=== PATIENT | male | born 1955 | race Caucasian/White ===

== ENCOUNTER 2016-06-10 02:35 | Inpatient (IN) | payer OTHER ==
--- NOTE | ~2016-06-10 | CR72 ---
[facility] A Service of [facility] & [facility] / [facility] RADIOLOGY TEXT RESULTS PATIENT: KETURAH FREDERICK LOCATION: [facility] : 53 UNIT #: [id number] AGE: [address]: Darryn Flores MD SEX: M ORDER DR: [id number] [facility] [address]. [place], [place] [address] [id number] MR#: [id number] #: [id number] NAME: KETURAH FREDERICK : 1955 SEX: M STUDY DATE/TIME: 06/10/2016 1:42 [facility] RO[facility]: [id number] STUDY DESCRIPTION: CR Chest Single View Portable Attending Physician: Darryn Flores M.D. Ordering Physician: Onel Dan M.D. Primary Care Physician: Avinash Beebe M.D. MEDICAL IMAGING REPORT This report is preliminary unless electronic signature is present EXAM Portable AP view of the chest COMPARISON May 25, 2016, March 18, 2015 and March 03, 2016. INDICTIONS 61-year-old male with dyspnea for 3 days. FINDINGS Cardiomediastinal silhouette is within normal limits. No pneumothorax or pleural effusion. Stable diffuse prominence of the pulmonary interstitium, nonspecific finding. IMPRESSION Stable diffuse prominence of the pulmonary interstitium, nonspecific finding. No acute radiographic abnormality. Dictated by... Rigoberto Riley M.D. THIS IS AN ELECTRONICALLY VERIFIED REPORT Rigoberto Riley M.D. at 06/10/2016 6:47 PM Amy TD: 06/10/2016 08:06 JOB #: [id number] MEDICAL IMAGING REPORT COPY
--- NOTE | ~2016-06-10 | DS ---
Unit #: [id number] #: [id number] Patient: KETURAH FREDERICK [id number] [address] [place], [place] [address] [id number] MR#: [id number] NAME: KETURAH FREDERICK ROOM: 574 Age: 61 Sex: M Admission Date: 06/10/2016 : 1955 Discharge Date: 06/16/2016 Attending Physician: Darryn Flores M.D. Primary Care Physician: Avinash Beebe M.D. DISCHARGE SUMMARY DISCHARGE DIAGNOSES 1. Acute and chronic hypoxemic/hypercarbic respiratory failure. 2. Chronic obstructive pulmonary disease exacerbation. 3. Diabetes mellitus. 4. Hypertension. 5. Hyperlipidemia. DISCHARGE MEDICATIONS 1. Simvastatin 40 mg p.o. daily. 2. Lisinopril 20 mg p.o. daily. 3. Janumet 50/500, one tablet twice daily. 4. Lantus 20 units subcu twice daily. 5. Albuterol inhaler, two puffs every four hours as needed. 6. Spiriva 18 mcg, one inhalation daily. 7. Symbicort 160/4.5, two puffs b.i.d. 8. O2 at 3 L. 9. Prednisone 40 mg for four days, decrease by 10 mg every four days until off. 10. Doxycycline 100 mg b.i.d. x3 days. FOLLOWUP Follow up in my office in one week. HOSPITAL COURSE 61-year-old white male recently discharged from the hospital, admitted with increased shortness of breath, cough and congestion. Chest x-ray showed no acute infiltrate. He was more dyspneic and tachypneic in the emergency room. He was treated with inhaled bronchodilators and steroids. He was admitted, treated with inhaled bronchodilators, IV Solu-Medrol, covered with oral antibiotics. O2 was administered. He was placed on DVT prophylaxis. He was placed on sliding scale insulin. His home medicines were all continued except for metformin, component of Janumet. He had markedly purulent sputum. He has been slowly weaned off his steroids and is going to be discharged home on Thursday but had an exacerbation at that time with more wheezing and dyspnea and his steroids were increased. Yesterday they were decreased back to 20 mg q.8 and he has improved. He does have some light green sputum production but is wheeze free. He will be discharged home on the above mentioned medications, to follow up in the office in one week to ensure he is doing well. He would likely be a candidate for Dalires to see if this improved the sputum production and his breathing somewhat and prevent further admissions. He is to monitor his blood sugars and report to his primary care physician, Dr. Garay, if they are persistently elevated. Unit #: [id number] #: [id number] Patient: KETURAH FREDERICK Dictated by... Chuck Macario/jimena TD: 06/18/2016 06:41 JOB #: [id number] DISCHARGE SUMMARY X Rc Garrett MD X DISCHARGE SUMMARY
--- NOTE | ~2016-06-10 | EKG ---
PATIENT: KETURAH FREDERICK UNIT #: [id number] Ventricular Rate: 97 BPM Atrial Rate: 97 BPM P-R Interval: 142 ms QRS Duration: 74 ms Q-T Interval: 328 ms QTC Calculation(Bezet): 416 ms P Elsie: 69 degrees Calculated R Elsie: -18 degrees Calculated T Elsie: 23 degrees Diagnosis Line: Normal sinus rhythm Diagnosis Line: Normal ECG Diagnosis Line: When compared with ECG of 25-MAY-2016 23:19, Diagnosis Line: No significant change was found Diagnosis Line: Confirmed by ANAIS STEVENSON MD ([id number]) on Diagnosis Line: 06/10/2016 12:01:16 PM INTERPRETING : DAYO
--- NOTE | ~2016-06-10 | HP ---
Unit #: [id number] #: [id number] Patient: KETURAH CHAVEZ [id number] [address] [place], [place] [address] [id number] MR#: [id number] NAME: KETURAH CHAVEZ ROOM: 574 Age: 61 Sex: M Admission Date: 06/10/2016 : 1955 Attending Physician: Darryn Flores M.D. Primary Care Physician: Avinash Beebe M.D. HISTORY AND PHYSICAL HISTORY OF PRESENT ILLNESS Mr. Chavez is a 61-year-old white male with a history of chronic obstructive pulmonary disease and chronic respiratory failure. He was recently discharged from the hospital on 05/29/2016 after being admitted for exacerbation of chronic obstructive pulmonary disease and acute on chronic hypoxemic hypercarbic respiratory failure. He was discharged on albuterol, Symbicort, Spiriva, Janumet, tapering dose of prednisone, Simvastatin, lisinopril, Lantus, Levaquin and O2 at 2 liters. He did okay. He was to follow up in two weeks, but he is home with daughter who caught a cold and he caught her cold. He has cough and greenish sputum. No definite documented fevers. No chest pain. No hemoptysis. He has had wheezing and increased shortness of breath. He was still on his prednisone taper, but had finished his Levaquin. He presented to the emergency room. His chest x-ray showed no acute infiltrate, mass or congestion. Chemistry revealed a creatinine of 1.0, glucose 209, sodium 130, white blood cell count 6,500, hematocrit 42.1, platelets normal. We were called to admit the patient. PAST MEDICAL HISTORY 1. Chronic obstructive pulmonary disease. 2. Chronic respiratory failure, hypoxemic hypercarbic. 3. Diabetes. 4. Hyperlipidemia. 5. Hypertension. PAST SURGICAL HISTORY None. SOCIAL HISTORY Stopped smoking for the last eight days. Smoked the first five days he returned home from the hospital. Had smoked a pack of cigarettes or less per day since he was a teenager. No alcohol or illicit drugs. FAMILY HISTORY Coronary artery disease, chronic obstructive pulmonary disease. ALLERGIES No known drug allergies. HOME MEDICATIONS 1. Ventolin. 2. Spiriva. 3. Symbicort. 4. Simvastatin. Unit #: [id number] #: [id number] Patient: KETURAH CHAVEZ 5. Lisinopril. 6. Janumet. 7. Lantus. REVIEW OF SYSTEMS Ten point systems otherwise negative. PHYSICAL EXAMINATION GENERAL: White male, currently in no distress. VITALS: Blood pressure 128/64, pulse 112, respiratory rate 20, temperature 97.9. HEENT: Normocephalic, atraumatic. Pupils equal, round and reactive. Sclerae nonicteric. Nasal passages patent. Posterior pharynx crowded. Poor dentition. NECK: Supple. Trachea midline. No cervical or supraclavicular lymphadenopathy. LUNGS: With no expiratory wheezes bilaterally. HEART: Heart sounds distant. Regular rate and rhythm. Could not appreciated murmur, rub or gallop. ABDOMEN: Nontender. Bowel sounds present. No hepatosplenomegaly. EXTREMITIES: Without clubbing, cyanosis or edema. NEUROLOGIC: Awake and oriented times three. Cranial nerves grossly intact. Muscle strength symmetric bilaterally. Affect calm. SKIN: Warm and dry. DIAGNOSTIC STUDIES IMAGING: Chest x-ray personally reviewed. No acute infiltrate, mass or congestion. LABORATORY: As noted. ASSESSMENT 1. Acute exacerbation of chronic obstructive pulmonary disease. 2. Acute on chronic hypoxemic hypercarbic respiratory failure. 3. Diabetes mellitus. 4. Hyperlipidemia. 5. Tobacco abuse. 6. High blood pressure. PLAN Inhaled bronchodilators, IV Solu-Medrol, cover with oral antibiotics. DVT prophylaxis. Nicotine patch. Discussed smoking cessation for 10 minutes. Also placed on sliding scale insulin for hyperglycemia secondary to steroids. Dictated by Chuck Macario TD: 06/11/2016 14:53 JOB #: [id number] Unit #: [id number] #: [id number] Patient: KETURAH CHAVEZ HISTORY AND PHYSICAL X Rc Garrett MD HISTORY AND PHYSICAL
[~2016-06-10 02:35] MED LIST: ACETAMINOPHEN PO; ACTOS30 MG PO; ALBUTEROL17 GM INH; AUGMENTIN PO; COMBIVENT U/D3 M2 INH; DUONEB 2.5-0.5 M3 ML NEB; GLIPIZIDE10 MG PO; GLUCOTROL PO; JANUMET 50-501 UDTAB PO; LANTUS SOLOSTAR3 ML SQ; LANTUS SOLOSTAR3 ML SUBQ; LANTUS100 U/ML SUBQ; LEVAQUIN PO; LEVAQUIN750 MG PO; LISINOPRIL20 MG PO; OXYGEN; PIOGLITAZONE30 MG PO; PREDNISONE PO; PREDNISONE10 MG PO; PROAIR HFA; SIMVASTATIN20 MG PO; SIMVASTATIN40 MG PO; SPIRIVA RESPIMAT4 G1 INH; SPIRIVA18 MCG INH; SYMBICORT INH; VIBRAMYCIN100 M1 PO; ZESTRIL40 MG PO; ZITHROMAX PO; ZOCOR20 MG PO
[2016-06-10 02:47] LABS: BASOPHIL% 0.2 % (0-2.5); HEMATOCRIT 42.1 % (38.0-50.0); HEMOGLOBIN 14.1 gm/dL (13.0-16.0); LYMPHOCYTE# 0.3 X10e3 (1.0-3.5); LYMPHOCYTE% 5.3 % (17.0-45.0); MEAN CORPUSCULAR HEMOGLOBIN 31.3 PG (28-34); MEAN CORPUSCULAR HGB CONC 33.4 g/dL (30-36); MEAN PLATELET VOLUME 8.2 FL (6.5-11.5); MONOCYTE# 0.2 X10e3 (0-1.0); MONOCYTE% 3.6 % (3.0-12.0); NEUTROPHIL# 5.9 X10e3 (1.5-7.1); NEUTROPHIL% 90.9 % (40-75); PLATELET COUNT 161 X10e3 (140-420); RED BLOOD COUNT 4.48 X10e (3.90-5.60); RED CELL DISTRIBUTION WIDTH 13.7 % (11.0-15.5); WHITE BLOOD COUNT 6.5 X10e3 (4.0-10.5)
[2016-06-10 02:51] LABS: DIFF IND NO
[2016-06-10 03:22] LABS: ALBUMIN SERUM 3.7 g/dL (3.5-5.0); ALKALINE PHOSPHATASE 49 U/L (32-92); ALT (SGPT) 20 U/L (10-40); AST (SGOT) 18 U/L (10-42); BILIRUBIN, DIRECT 0.1 mg/dL (0.0-0.2); BILIRUBIN,INDIRECT 0.7 mg/dL (0.0-0.9); BILIRUBIN,TOTAL 0.8 mg/dL (0.2-2.0); BLOOD UREA NITROGEN 19 mg/dL (9-23); CALCIUM SERUM 9.2 mg/dL (8.4-10.2); CARBON DIOXIDE 30 mmol/L (22-31); CHLORIDE 94 mmol/L (100-111); GLOM FILT RATE Estimated ABOVE60 mL/min (>60); GLUCOSE FASTING 209 mg/dL (70-110); POTASSIUM 4.8 mmol/L (3.5-5.1); PROTEIN TOTAL SERUM 7.4 g/dL (6.0-8.3); SODIUM 134 mmol/L (135-145)
[2016-06-10 03:27] LABS: POC - CKMB 3.1 ng/mL (0.0-7.9); POC - TROPONIN <0.05 ng/mL (<=0.05)
[2016-06-10 04:31] LABS: POC - CKMB 2.2 ng/mL (0.0-7.9); POC - TROPONIN <0.05 ng/mL (<=0.05)
[2016-06-16] MEDS ORDERED: PREDNISONE10 MG PO (11:53)
[2016-12-30] MEDS ORDERED: LANTUS100 U/ML SUBQ (05:04)
[2016-12-30] MEDS ORDERED: PROAIR HFA8.5 GM INH (05:05)
[2017-01-05] MEDS ORDERED: PREDNISONE PO (13:20)
[2017-01-05] MEDS ORDERED: NORVASC10 MG PO (13:22)
[2017-01-05] MEDS ORDERED: SODIUM CHLORIDE4 ML INH (13:25)
== END 2016-06-16 12:46 | disposition home or self-care (01) | DRG 189 ==
LOC: CED 02:35 → CEDOF 06:40 → C5C 08:46
PROVIDERS: Emergency Medicine
DX: J96.21 Acute and chronic respiratory failure with hypoxia (principal); J44.1 Chronic obstructive pulmonary disease with (acute) exacerbation; I10 Essential (primary) hypertension; F19.20 Other psychoactive substance dependence, uncomplicated; J96.22 Acute and chronic respiratory failure with hypercapnia; E11.9 Type 2 diabetes mellitus without complications; E78.5 Hyperlipidemia, unspecified; Z79.4 Long term (current) use of insulin
CPT/HCPCS: 36415; 71010; 80048; 80076; 82553; 82947; 84484; 85025; 87040; 93005; 94640; 94664; 94760; 96374; 99285; G0238; J1650; J1815; J2920; J2930

== ENCOUNTER 2016-12-25 07:59 | Emergency (ER) | payer OTHER ==
[~2016-12-25] VITALS: Ht 162.6 cm; Wt 70.3 kg
--- NOTE | ~2016-12-25 | CR72 ---
[facility] A Service of [facility] & [facility] RADIOLOGY TEXT RESULTS PATIENT: KETURAH FREDERICK LOCATION: [facility] : 53 UNIT #: [id number] AGE: [address]: Ryanne Moya APRN SEX: M ORDER DR: [id number] [facility] [address] [place], [place] [address] [id number] MR#: [id number] Acc #: [id number] NAME: KETURAH FREDERICK : 1955 SEX: M STUDY DATE/TIME: 12/25/2016 8:38 UNIT: [facility] ROOM: STUDY DESCRIPTION: CR Chest Single View Portable Attending Physician: Ryanne Moya A.P.R.N. Ordering Physician: Ed Doctor [id number] [facility] Primary Care Physician: Avinash Beebe M.D. MEDICAL IMAGING REPORT This report is preliminary unless electronic signature is present EXAM Portable chest INDICTIONS Cough and congestion for four days. COMPARISON: 06/10/16 FINDINGS A portable view o the chest was obtained. The heart size and vascularity are normal. The lungs are clear and the bones are unremarkable. IMPRESSION No active disease Dictated by... Delmar Logan M.D. THIS IS AN ELECTRONICALLY VERIFIED REPORT Delmar Logan M.D. at 12/25/2016 3:38 PM CARLITOS/rossi TD: 12/25/2016 14:12 JOB #: [id number] MEDICAL IMAGING REPORT Page 1 of 1 COPY
--- NOTE | ~2016-12-25 | EKG ---
PATIENT: KETURAH FREDERICK UNIT #: [id number] Ventricular Rate: 94 BPM Atrial Rate: 94 BPM P-R Interval: 170 ms QRS Duration: 78 ms Q-T Interval: 344 ms QTC Calculation(Bezet): 430 ms P Baldwin: 78 degrees Calculated R Baldwin: -23 degrees Calculated T Baldwin: 17 degrees Diagnosis Line: Normal sinus rhythm Diagnosis Line: Normal ECG Diagnosis Line: When compared with ECG of 10-JUN-2016 02:02, Diagnosis Line: No significant change was found Diagnosis Line: Confirmed by JIMI ROLLINS MD ([id number]) on Diagnosis Line: 12/26/2016 11:33:26 AM INTERPRETING MD: AYO LIMA
[2016-12-25 08:54] LABS: BASOPHIL% 0.5 % (0-2.5); DIFF IND NO; EOSINOPHIL# 0.1 X10e3 (0-0.7); EOSINOPHIL% 1.6 % (0.0-7.0); HEMATOCRIT 42.2 % (38.0-50.0); HEMOGLOBIN 14.2 gm/dL (13.0-16.0); LYMPHOCYTE# 0.9 X10e3 (1.0-3.5); MEAN CELL VOLUME 93.1 FL (83-96); MEAN CORPUSCULAR HEMOGLOBIN 31.3 PG (28-34); MEAN CORPUSCULAR HGB CONC 33.7 g/dL (30-36); MEAN PLATELET VOLUME 8.2 FL (6.5-11.5); MONOCYTE# 0.7 X10e3 (0-1.0); MONOCYTE% 10.1 % (3.0-12.0); NEUTROPHIL# 5.3 X10e3 (1.5-7.1); NEUTROPHIL% 74.8 % (40-75); PLATELET COUNT 204 X10e3 (140-420); RED BLOOD COUNT 4.54 X10e (3.90-5.60); RED CELL DISTRIBUTION WIDTH 13.5 % (11.0-15.5)
[2016-12-25 08:58] LABS: POC - CKMB 5.7 ng/mL (0.0-7.9); POC - TROPONIN <0.05 ng/mL (<=0.05)
[2016-12-25 09:19] LABS: ALBUMIN SERUM 4.2 g/dL (3.5-5.0); BILIRUBIN, DIRECT 0.2 mg/dL (0.0-0.2); BILIRUBIN,INDIRECT 1.2 mg/dL (0.0-0.9); BILIRUBIN,TOTAL 1.4 mg/dL (0.2-2.0); CALCIUM SERUM 9.2 mg/dL (8.4-10.2); GLOM FILT RATE Estimated 79.8 mL/min (>60); POTASSIUM 3.8 mmol/L (3.5-5.1); PROTEIN TOTAL SERUM 7.8 g/dL (6.0-8.3)
[2016-12-30] MEDS ORDERED: LANTUS100 U/ML SUBQ (05:04)
[2016-12-30] MEDS ORDERED: PROAIR HFA8.5 GM INH (05:05)
[2017-01-05] MEDS ORDERED: PREDNISONE PO (13:20)
[2017-01-05] MEDS ORDERED: NORVASC10 MG PO (13:22)
[2017-01-05] MEDS ORDERED: SODIUM CHLORIDE4 ML INH (13:25)
== END 2016-12-25 10:10 | disposition home or self-care (01) ==
LOC: CED 07:59
PROVIDERS: Nurse Practitioner
DX: J44.1 Chronic obstructive pulmonary disease with (acute) exacerbation (principal); E11.9 Type 2 diabetes mellitus without complications; I10 Essential (primary) hypertension; F17.210 Nicotine dependence, cigarettes, uncomplicated; Z79.4 Long term (current) use of insulin; Z79.899 Other long term (current) drug therapy
CPT/HCPCS: 36415; 71010; 80048; 80076; 82553; 82947; 84484; 85025; 93005; 94640; 99285